=== PATIENT | female | born 1975 | race Caucasian/White ===

== ENCOUNTER 2016-08-10 21:37 | Emergency (ER) | payer OTHER ==
[~2016-08-10] VITALS: Ht 154.9 cm; Wt 72.6 kg
--- NOTE | 2016-08-10 21:37 | NUR ---
Dr. Sierar evaluating patient at bedside. Respiratory Therapist at bedside for respiratory intervention.
[2016-08-10 21:38] VITALS: BP 173/94
--- NOTE | 2016-08-10 21:38 | NUR ---
41 Y/O F BIBA W/C/O SOB.SHES ON DIALYSIS AT HOME IN PROGRESS, WITH SOB, LUNGS SOUNDS CLEAR, PT PINK, ON NONREBREATHER MASK, 15LT. ER MD AT BEDSIDE.
--- NOTE | 2016-08-10 21:38 | NUR ---
PT BILLY ALS. TAKEN TO BED 3
[2016-08-10] MEDS ORDERED: LORazepam 2 MG/ML VIAL IVP ONE ×2 (21:45→22:15)
[2016-08-10] MEDS ORDERED: DEXAMETHASONE 10 MG/ML VIAL IVP ONE (21:45)
[2016-08-10] MEDS ORDERED: ALBUTEROL SULFATE/IPRATROPIU 3 ML SOL IH PRN (21:45)
--- NOTE | 2016-08-10 21:50 | NUR ---
X-Ray at bedside.
[2016-08-10] MEDS ORDERED: LORazepam 2 MG/ML VIAL ONE (21:51)
[2016-08-10 22:08] LABS: BASOPHILS # (AUTO) 0.1 K/uL (0.00-0.22); BASOPHILS % (AUTO) 0.6 % (0.0-2.0); EOSINOPHILS # (AUTO) 0.4 K/uL (0-0.4); EOSINOPHILS % (AUTO) 3.2 % (0.0-4.0); HEMATOCRIT 37.3 % (36-48); HEMOGLOBIN 11.9 g/dL (12.0-16.0); LYMPHOCYTES # (AUTO) 1.3 K/uL (2.5-16.5); LYMPHOCYTES % (AUTO) 11.8 % (20.5-51.1); MEAN CORPUSCULAR HEMOGLOBIN 28 pg (27-31); MEAN CORPUSCULAR HGB CONC 32 g/dL (33-37); MEAN CORPUSCULAR VOLUME 89 fL (80-94); MONOCYTES # (AUTO) 0.4 K/uL (0.8-1.0); MONOCYTES % (AUTO) 3.1 % (1.7-9.3); NEUTROPHILS # (AUTO) 9.1 K/uL (1.8-7.7); NEUTROPHILS % (AUTO) 81.3 % (42.2-75.2); PLATELET COUNT (AUTO) 336 K/uL (140-450); RED CELL DISTRIBUTION WIDTH 13.4 % (11.6-13.7); WHITE BLOOD COUNT (AUTO) 11.3 K/uL (4.8-10.8)
[2016-08-10 22:21] LABS: BLOOD GAS BASE EXCESS -1.2 mmol/L (-2.0-2.0); BLOOD GAS HCO3 20.5 mmol/L; BLOOD GAS O2 SAT% 96.8 % (92.0-98.5); BLOOD GAS PCO2 26.3 mmHg (20-50); BLOOD GAS PO2 84.5 mmHg
[2016-08-10 22:24] VITALS: BP 179/82
[2016-08-10 22:39] LABS: ALBUMIN 2.6 g/dL (3.4-5.0); ANION GAP 21.2 (8-16); CALCIUM 7.6 mg/dL (8.5-10.1); CARBON DIOXIDE 23.3 mmol/L (21-32); MAGNESIUM 2.3 mg/dL (1.8-2.4); POTASSIUM 5.5 mmol/L (3.5-5.1); THYROID STIMULATING HORMONE 3.99 uIU/mL (0.34-3.76); TOTAL BILIRUBIN 0.4 mg/dL (0.0-1.0); TOTAL PROTEIN, SERUM 7.1 g/dL (6.4-8.2)
[2016-08-10 22:45] LABS: CREATININE 11.3 mg/dL (0.6-1.3)
--- NOTE | 2016-08-10 23:26 | NUR ---
Dr. Sierra re-evaluating patient at bedside.
[2016-08-10] MEDS ORDERED: FUROSEMIDE 40 MG/4 ML VIAL IVP SCH (23:35)
--- NOTE | 2016-08-11 00:24 | NUR ---
PT'S CALLED AND NOTIFIED OF FUTURE TRASFER TO [facility] .
--- NOTE | 2016-08-11 00:26 | NUR ---
TRIED TO CONTACT [facility] ON [phone] MULTIPLE TIMES BUT N/A.
--- NOTE | 2016-08-11 00:37 | NUR ---
Patient to be transferred to [facility] .Receiving facility has accepting physician and available space. ER physician has signed transfer form. Patient or responsible alliance party has agreed to transfer and signed form. Patient belongings inventoried and will be sent with patient. Copy of nursing notes, lab reports, EKG, Physicians Orders and X-rays to be sent with patient. Report called to IRENE HOWARD at receiving facility. [facility] ambulance service has been called for transfer. ETA is AT [phone].
--- NOTE | 2016-08-11 00:44 | NUR ---
UNABLE TO OBTAIN URINE. PER DR HUERTA, DENZEL FLOWERS NO NEED FOR I & O CATH URINE.
--- NOTE | 2016-08-11 00:44 | NUR ---
DENZEL FLOWERS NOTIFIED OF BLOOD PRESSURE READINGS.
[2016-08-11 01:23] VITALS: BP 142/65
--- NOTE | 2016-08-11 01:23 | NUR ---
PT TRASFERRED TO [facility] VIA [facility] [address]. NO S/S OF DISTRESS IPON TRANSFER.
== END 2016-08-11 01:23 | disposition short-term general hospital (02) ==
LOC: MED 21:37
DX: J80 Acute respiratory distress syndrome (principal); I12.0 Hypertensive chronic kidney disease with stage 5 chronic kidney disease or end stage renal disease; N18.6 End stage renal disease; E11.9 Type 2 diabetes mellitus without complications; Z88.6 Allergy status to analgesic agent
CPT/HCPCS: 36600; 71010; 80053; 82803; 83735; 83880; 84443; 84484; 85025; 93005; 96374; 96375; 96376; 99285; J1100; J1940; J2060; J7620; Q0092